=== PATIENT | male | born 1960 | race Caucasian/White ===

== ENCOUNTER 2016-11-09 04:01 | Observation (INO) | payer OTHER ==
[~2016-11-09] VITALS: Ht 177.8 cm; Wt 124.7 kg
--- NOTE | 2016-11-09 04:08 | ED CARDIAC/CP/PALPITATIONS ---
History of Present Illness General Chief Complaint: General Adult Stated Complaint: " CP AND BACK PAIN" Source: patient, family Exam Limitations: no limitations Vital Signs & Intake/Output Vital Signs & Intake/Output Vital Signs Date Time Temp Pulse Resp B/P Pulse O2 O2 Flow FiO2 Ox Delivery Rate 11/09 1530 97.4 67 20 136/92 94 Room Air 11/09 1027 78 138/90 11/09 1006 98.1 78 18 138/90 95 Room Air 11/09 0836 Room Air 11/09 0751 99.2 72 16 135/65 95 Room Air 11/09 0521 96.5 76 18 156/92 95 Room Air 11/09 0415 97 Room Air 11/09 0408 97.5 85 16 197/105 96 Room Air Room Air Allergies Coded Allergies: shellfish derived (Severe, ANAPHYLAXIS 11/09/16) Reconcile Medications Carvedilol 25 MG TABLET 1 TAB PO BID HTN (Reported) Eplerenone 25 MG TABLET 1 TAB PO DAILY HTN (Reported) Triage Nurses Notes Reviewed? yes Onset: Abrupt Duration: hour(s): (4) Timing: single episode today Quality/Severity: dull, pressure Location: LEFT CHEST Radiation: INTRASCAPULAR Activities at Onset: sleep Prior Chest Pain/Card Workup: no prior chest pain Nitro Today/Relief: no nitro taken today Aspirin Today: no aspirin today Associated Symptoms: CHEST PAIN/BACK PAIN HPI: This is a 56-year-old male with history of hypertension and obesity who presents to the ER with chief complaint of left-sided chest pain which woke him up at 11 PM. He states the pain is dull, moderate in intensity. It radiates to the intrascapular region. No associated palpitations diaphoresis or shortness of breath. No history of similar symptoms before. Patient found to be hypertensive in triage. He states usually his systolic blood pressure is around 130. He is compliant with his blood pressure medications. No history of previous known coronary disease. Denies ever having a cardiac catheterization or stress test. He did have an outpatient echocardiogram by Dr. Bernardo 2 weeks ago but does not know the results yet. He is not a smoker. He does drink occasional wine. He denies any chest pain or shortness of breath with exertion or climbing stairs at baseline. She states when the pain happened he tried to take a dose of Maalox which usually helps heartburn but he states symptoms didn' t go away. This also does not feel like his heartburn. Past History Travel History Traveled to [place] past 21 day No Medical History Any Pertinent Medical History? see below for history Cardiovascular: hypertension Other Medical Hx: obesity Surgical History Surgical History: non-contributory Psychosocial History Tobacco Use: Never used ETOH Use: occasional use Family History Comment: GRANDFATHER WITH ? AORTIC ANEURYSM Hx Contributory? Yes Review of Systems Review of Systems Constitutional: Denies: chills, fever. EENTM: Reports: no symptoms. Respiratory: Denies: cough, short of breath, sputum production. Cardiovascular: Reports: chest pain. Denies: palpitations, peripheral edema, syncope. GI: Denies: abdominal pain, nausea, vomiting. Genitourinary: Reports: no symptoms. Musculoskeletal: Reports: back pain. Skin: Reports: no symptoms. Neurological/Psychological: Reports: no symptoms. Hematologic/Endocrine: Denies: bruising, bleeding, polyuria, polydipsia. Immunologic/Allergic: Denies: splenectomy. All Other Systems: Reviewed and Negative Physical Exam Physical Exam General Appearance: well developed/nourished, alert, awake, anxious, mild distress, obese Head: atraumatic, normal appearance Eyes: Bilateral: normal appearance, PERRL, EOMI. Ears, Nose, Throat: normal pharynx, normal ENT inspection, hearing grossly normal Neck: normal inspection, supple, full range of motion Respiratory: normal breath sounds, chest non-tender, no respiratory distress Cardiovascular: regular rate/rhythm, normal peripheral pulses Peripheral Pulses: 2+ radial (R), 2+ radial (L) Gastrointestinal: normal bowel sounds, soft, non-tender Back: normal inspection, normal range of motion Extremities: normal inspection, normal capillary refill, normal range of motion, no edema Neurologic/Psych: no motor/sensory deficits, awake, alert, oriented x 3 Skin: intact Core Measures ACS in differential dx? Yes Severe Sepsis Present: No Septic Shock Present: No Progress Differential Diagnosis: AMI, aortic dissection, musculoskeletal pain, myocarditis, pancreatitis, pericarditis, pneumonia, pneumothorax, pulmonary embolism, unstable angina Plan of Care: Orders Procedure Date/time Status Nothing by Mouth 11/10 B Active MYOCARDIAL PERFUSION IMAGING 11/10 0800 Active STRESS TEST W/NUCLEAR IMAGING 11/10 0600 Active Heart Healthy Diet 11/09 L Complete Heart Healthy Diet 11/09 B Complete TROPONIN LEVEL 11/09 1600 Complete EKG 11/09 1600 Active TROPONIN LEVEL 11/09 1000 Complete EKG 11/09 1000 Active Pathway - chart 11/09 0921 Active Code Status 11/09 0921 Active Vital Signs 11/09 0825 Active Teach/Educate 11/09 0825 Active Nutritional Intake, Monitor 11/09 0825 Active Isolation 11/09 0825 Active Intake & Output 11/09 0825 Active Patient Care Conference 11/09 0825 Active Activity/Ambulation 11/09 0825 Active Patient Data 11/[address] in observation 11/09 0702 Active Vital Signs 11/09 0702 Active Code Status 11/09 0702 Complete Add-on Test (ER Only) 11/09 0701 Active Add-on Test (ER Only) 11/09 0423 Active LIPASE 11/09 0420 Complete ETHANOL 11/09 0420 Complete D-DIMER 11/09 0420 Complete Telemetry/Nurses' Registry Director 11/09 0419 Active TROPONIN LEVEL 11/09 0419 Complete PARTIAL THROMBOPLASTIN TIME 11/09 0419 Complete PROTHROMBIN TIME 11/09 0419 Complete COMPREHENSIVE METABOLIC PANEL 11/09 0419 Complete CBC WITHOUT DIFFERENTIAL 11/09 0419 Complete Intake & Output 11/09 0411 Active EKG 11/09 0405 Active EKG 11/09 0403 Active House Staff 11/09 UNK Active Vital Signs 11/09 UNK Complete ECHOCARDIOGRAM 11/09 UNK Active Current Medications Sig/Georgette Start time Last Medication Dose Stop Time Status Admin Aspirin 81 MG DAILY 11/10 1000 AC (Aspirin) Nitroglycerin 0.4 MG Q 5 MINUTES X 3 DO.. 11/09 1130 AC (Nitrostat) Laboratory Tests 11/09/16 1627: Troponin I < 0.01 11/09/16 1020: Troponin I < 0.01 11/09/16 0421: Lipase Cancelled, Serum Alcohol Cancelled 11/09/16 0420: Anion Gap 12, Estimated GFR > 60, BUN/Creatinine Ratio 15.0, Glucose 113 H, Calcium 9.6, Total Bilirubin 0.7, AST 31, ALT 48, Alkaline Phosphatase 52, Troponin I < 0.01, Total Protein 7.8, Albumin 4.4, Globulin 3.4, Albumin/ Globulin Ratio 1.3, Lipase 103, PT 10.3, INR 0.98, APTT 31, D-Dimer < 200, CBC w Diff NO MAN DIFF REQ, RBC 4.92, MCV 94.4 H, MCH 31.8 H, RDW 13.4, MPV 9.5, Gran % 69.4, Lymphocytes % 20.2 L, Monocytes % 7.5, Eosinophils % 2.3, Basophils % 0.6, Absolute Granulocytes 6.3, Absolute Lymphocytes 1.8, Absolute Monocytes 0.7 H, Absolute Eosinophils 0.2, Absolute Basophils 0.1, PUBS MCHC 33.7, Serum Alcohol < 10.0 ekg, tele monitor. b/l manual arm bp. labs, cxr. sl nitro ordered. Back pain resolved after nitro. Some lingering chest pain. Nitrop paste ordered. Aspirin ordered. D/W DR COSTA. PLATIENT PLACED IN OBSERVATION TO TELEMETRY. (TRAY LOPEZ,JES) Diagnostic Imaging: Viewed by Me: Radiology Read, CT Scan. Discussed w/RAD: Radiology Read, CT Scan. Radiology Impression: PATIENT: EULALIO MCKNIGHT PRESENT AGE: 56 PATIENT ACCOUNT NO: [id number] : 58 LOCATION: [facility] ORDERING PHYSICIAN: JES FELIZ MD SERVICE DATE: 11/09/16 EXAM TYPE: CAT - CT CHEST WO IV CONTRAST EXAMINATION: CT CHEST WITHOUT CONTRAST CLINICAL INFORMATION: Chest pain. COMPARISON: Same day chest radiograph. TECHNIQUE: Contiguous axial thin section helical images of the chest were performed without contrast. The data set was reformatted in the coronal and sagittal planes and reviewed on an independent workstation. DLP: 801 mGy-cm. FINDINGS: There is an area of low attenuation within the left thyroid gland measuring 2.4 cm. The heart is of normal size. There is no pericardial effusion. There is neither mediastinal, hilar nor axillary lymphadenopathy. There are no chest wall masses. Review of lung windows demonstrates that there are neither pleural effusions nor pneumothoraces. There is mild dependent bibasilar atelectasis. There are no consolidations. There is medial segment right middle lobe atelectasis. There are no concerning pulmonary parenchymal nodules. Within the right upper lobe, there is a benign calcified 3 mm granuloma on image 135/592. Images of the upper abdomen demonstrate that the liver is of normal size and attenuation. Within the dome of the right lobe of the liver, there is an approximately 5 mm area of decreased attenuation which is too small to fully characterize. Normal adrenal glands are identified. Diverticulosis is identified within the left upper quadrant. Bone windows: Neither sclerotic nor lytic bone lesions are identified. IMPRESSION: No mediastinal or hilar abnormalities. Right middle lobe atelectasis. Colonic diverticulosis without evidence of diverticulitis. DICTATED BY: YOAN WILHLEM MD DATE/TIME DICTATED:11/09/16525 SPANISH MOSS PICKER: NANCY DATE/TIME TRANSCRIBED:11/09/16525 CONFIDENTIAL, DO NOT COPY WITHOUT APPROPRIATE AUTHORIZATION. <Electronically signed in Other Vendor System> SIGNED BY: YOAN WILHELM MD 11/09/16535 CXR Impression: PATIENT: EULALIO MCKNIGHT PRESENT AGE : 56 PATIENT ACCOUNT NO: [id number] : 58 LOCATION: [facility] ORDERING PHYSICIAN: JES FELIZ MD SERVICE DATE: 11/09/16 EXAM TYPE: RAD - XRY -PORTABLE CHEST XRAY EXAMINATION: CHEST 1 VIEW CLINICAL INFORMATION: Chest pain. COMPARISON: None. TECHNIQUE: An AP view of the chest is provided. FINDINGS: The cardiac silhouette is enlarged. The mediastinal and hilar contours are unremarkable. There are neither pleural effusions nor pneumothoraces. Evaluation of lungs is limited due to low lung volumes. There are no consolidations. The osseous structures are unremarkable. IMPRESSION: No evidence for acute disease. Cardiomegaly. DICTATED BY: YOAN WILHELM MD DATE/TIME DICTATED:11/09/16504 SPANISH MOSS PICKER:NANCY DATE/TIME TRANSCRIBED:11/09/16504 CONFIDENTIAL, DO NOT COPY WITHOUT APPROPRIATE AUTHORIZATION. <Electronically signed in Other Vendor System> SIGNED BY: YOAN WILHELM MD 11/09/16509 Initial ED EKG: NSR Rhythm Strip: normal sinus rhythm Departure Departure Time of Disposition: 646 Disposition: STILL A PATIENT Condition: Stable Clinical Impression Primary Impression: Unstable angina Referrals: JAVON LOPEZ,ABHI (PCP/Family) Departure Forms: Customer Survey General Discharge Information Observation Note Spoke With: PARUL COSTA M.D Physician Advisor Notified: TWAN MELGOZA DO Place Patient In: Non-ED OBS Care Area Rationale for Observation: My rational for observation is as follows [TELE MONITOR, SERIAL EKG, SERIAL TROPONIN, ASPIRIN, NITRATES, CARDIOLOGY EVALUATION, F/U ECHOCARDIOGRAM RESULTS]. Critical Care Note Critical Care Note Critical Care Time: 30-74 min
[2016-11-09] MEDS ORDERED: CARVEDILOL25 M1 PO (04:18)
[2016-11-09] MEDS ORDERED: EPLERENONE25 M1 PO (04:18)
--- NOTE | 2016-11-09 04:19 | NUR ---
PT FROM HOME C/O CP AND BACK PAIN. PT STATES "I WOKE UP AROUND 2300 WITH CHEST AND BACK PAIN" PT DENIES EATING ANY SPICY FOOD, DENIES BILATERAL NUMBNESS OR TINGLING, DENIES N.V.D, DENIES JAW OR PAIN RADIATING ANYWHERE. PT TO 1 WITH EKG, LABS DRAWN (BLUE, SST, ELLIOTT, LAV), IV ACCESS ESTABLISHED PER THIS RN RAC #[id number]. DR FELIZ IN FOR EVAL
--- NOTE | 2016-11-09 04:24 | NUR ---
PT MEDICATED WITH 0.4MG NITROSTAT PER EMAR FOR CP 05/21.
[2016-11-09 04:30] LABS: ABSOLUTE BASOPHIL COUNT 0.1 /CUMM (0.0-0.2); ABSOLUTE EOSINOPHIL COUNT 0.2 /CUMM (0.0-0.7); ABSOLUTE GRANULOCYTE CT 6.3 /CUMM (1.4-6.5); ABSOLUTE LYMPH COUNT 1.8 /CUMM (1.2-3.4); ABSOLUTE MONOCYTE COUNT 0.7 /CUMM (0.10-0.60); BASOPHIL % 0.6 % (0.0-2.0); EOSINOPHIL % 2.3 % (0-5); GRANULOCYTE % 69.4 % (42.2-75.2); HEMATOCRIT 46.5 % (42-52); MEAN CORPUSCULAR HGB 31.8 PG (27.0-31.0); MEAN CORPUSCULAR HGB CONC 33.7 G/DL (33.0-37.0); MEAN CORPUSCULAR VOLUME 94.4 FL (80.0-94.0); MEAN PLATELET VOLUME 9.5 FL (7.4-10.4); PLATELET COUNT 195 /CUMM (130-400); RBC DISTRIBUTION WIDTH 13.4 % (11.5-14.5); RED BLOOD CELL CT 4.92 /CUMM (4.70-6.10)
--- NOTE | 2016-11-09 04:31 | NUR ---
MANUAL BP RIGHT ARM 152/84 LEFT ARM 146/90
--- NOTE | 2016-11-09 04:41 | NUR ---
PT AWAITING XRAY
[2016-11-09 04:45] LABS: PT 10.3 SEC (9.4-12.5); PTT 31 SEC (25-37)
--- NOTE | 2016-11-09 05:10 | RADIOLOGY REPORT ---
EXAMINATION: CHEST 1 VIEW CLINICAL INFORMATION: Chest pain. COMPARISON: None. TECHNIQUE: An AP view of the chest is provided. FINDINGS: The cardiac silhouette is enlarged. The mediastinal and hilar contours are unremarkable. There are neither pleural effusions nor pneumothoraces. Evaluation of lungs is limited due to low lung volumes. There are no consolidations. The osseous structures are unremarkable. IMPRESSION: No evidence for acute disease. Cardiomegaly.
--- NOTE | 2016-11-09 05:23 | NUR ---
PT MEDICATED WITH 1GM NITROBID TO LEFT CHEST AND 325MG ASA PER EMAR.
--- NOTE | 2016-11-09 05:36 | CT SCAN REPORT ---
EXAMINATION: CT CHEST WITHOUT CONTRAST CLINICAL INFORMATION: Chest pain. COMPARISON: Same day chest radiograph. TECHNIQUE: Contiguous axial thin section helical images of the chest were performed without contrast. The data set was reformatted in the coronal and sagittal planes and reviewed on an independent workstation. DLP: 801 mGy-cm. FINDINGS: There is an area of low attenuation within the left thyroid gland measuring 2.4 cm. The heart is of normal size. There is no pericardial effusion. There is neither mediastinal, hilar nor axillary lymphadenopathy. There are no chest wall masses. Review of lung windows demonstrates that there are neither pleural effusions nor pneumothoraces. There is mild dependent bibasilar atelectasis. There are no consolidations. There is medial segment right middle lobe atelectasis. There are no concerning pulmonary parenchymal nodules. Within the right upper lobe, there is a benign calcified 3 mm granuloma on image 135/592. Images of the upper abdomen demonstrate that the liver is of normal size and attenuation. Within the dome of the right lobe of the liver, there is an approximately 5 mm area of decreased attenuation which is too small to fully characterize. Normal adrenal glands are identified. Diverticulosis is identified within the left upper quadrant. Bone windows: Neither sclerotic nor lytic bone lesions are identified. IMPRESSION: No mediastinal or hilar abnormalities. Right middle lobe atelectasis. Colonic diverticulosis without evidence of diverticulitis.
--- NOTE | 2016-11-09 07:34 | NUR ---
[facility] ASSIGNMENT [id number]
--- NOTE | 2016-11-09 07:51 | NUR ---
ASSUMED CARE OF PT WHO IS SITTING UP, A/O X 4, SPEAKING CLEARLY WITH NO DISTRESS OR DEFICITS NOTED. PT STATES HE FEELS "GOOD" AND DENIES ANY PAIN AT THIS TIME. DENIES CHEST PAIN. DENIES BACK PAIN. HAS NITRO IN PLACE TO L TORSO, DATED TODAY 514. PT REMAINS NORMAL SINUS ON MONITOR, RATE 68 AWARE HE IS WAITING FOR ADMISSION/TRANSPORT UPSTAIRS DENIES NEEDING ANYTHING AT THIS TIME.
--- NOTE | 2016-11-09 07:57 | NUR ---
PT GOING TO 182 PER NURSE ON TELEMOE CALLED.
--- NOTE | 2016-11-09 08:46 | History & Physical ---
CHETAN LOPEZ,[facility] 11/09/16 0846: General Information and HPI MD Statement: I have seen and personally examined EULALIO MCKNIGHT and documented this H&P. The patient is a 56 year old M who presented with a patient stated chief complaint of [chest pressure]. Source of Information: patient Exam Limitations: no limitations History of Present Illness: 56-year-old male with past medical history of hypertension presents to the ED with complaints of chest pressure/heaviness that woke him up from sleep last at 11 PM. Patient reports pain on the left side of the chest and heaviness in between the shoulder blades which he noticed the same time. Reports his pain was totally relieved after sublingual nitroglycerin that he received in ED Denies chest pain, difficulty breathing, dizziness, syncope, palpitations, Pain radiating to the shoulders. Never had similar symptoms in the past. Has acid reflex once in a while and takes Tums as needed. Recently had an echocardiogram done with Dr. Bernardo. He was referred by his primary care physician for hypertension. Never had nuclear stress test in the past. Has had echocardiograms in the past for uncontrolled hypertension. But his blood pressure has been stable since he started carvedilol and eplerenone. Allergies/Medications Allergies: Coded Allergies: shellfish derived (Severe, ANAPHYLAXIS 11/09/16) Home Med list Carvedilol 25 MG TABLET 1 TAB PO BID HTN (Reported) Eplerenone 25 MG TABLET 1 TAB PO DAILY HTN (Reported) Past History Travel History Traveled to [place] past 21 day No Medical History Blood Transfusion Hx: No Cardiovascular: hypertension Other Medical Hx: obesity Isolation History: Standard Surgical History Surgical History: none Past Family/Social History Family History Relations & Conditions if any FATHER Relation not specified for: FHx: hypertension Psychosocial History Smoking Status: Never Smoked ETOH Use: occasional use Illicit Drug Use: denies illicit drug use Functional Ability ADLs Independent: dressing, eating, toileting, bathing. Ambulation: independent IADLs Independent: shopping, housework, finances, food prep, telephone, transportation , medication admin. 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 Exam & Diagnostic Data Last 24 Hrs of Vital Signs/I&O Vital Signs Date Time Temp Pulse Resp B/P Pulse O2 O2 Flow FiO2 Ox Delivery Rate 11/09 1027 78 138/90 11/09 1006 98.1 78 18 138/90 95 Room Air 11/09 0836 Room Air 11/09 0751 99.2 72 16 135/65 95 Room Air 11/09 0521 96.5 76 18 156/92 95 Room Air 11/09 0415 97 Room Air 11/09 0408 97.5 85 16 197/105 96 Room Air Room Air Intake & Output 11/09 1600 11/09 0800 11/09 0000 Intake Total Output Total Balance Patient 275 lb 275 lb Weight Physical Exam General Appearance Alert, Oriented X3, Cooperative, No Acute Distress Skin No Rashes HEENT Atraumatic Cardiovascular Regular Rate, Normal S1, Normal S2, No Murmurs Lungs Clear to Auscultation Abdomen Normal Bowel Sounds, Soft, No Tenderness Extremities No Clubbing, No Cyanosis, No Edema Last 24 Hrs of Labs/Aiden: Laboratory Tests 11/09/16 1020: Troponin I Pending 11/09/16 0421: Lipase Cancelled, Serum Alcohol Cancelled 11/09/16 0420: Anion Gap 12, Estimated GFR > 60, BUN/Creatinine Ratio 15.0, Glucose 113 H, Calcium 9.6, Total Bilirubin 0.7, AST 31, ALT 48, Alkaline Phosphatase 52, Troponin I < 0.01, Total Protein 7.8, Albumin 4.4, Globulin 3.4, Albumin/ Globulin Ratio 1.3, Lipase 103, PT 10.3, INR 0.98, APTT 31, D-Dimer < 200, CBC w Diff NO MAN DIFF REQ, RBC 4.92, MCV 94.4 H, MCH 31.8 H, RDW 13.4, MPV 9.5, Gran % 69.4, Lymphocytes % 20.2 L, Monocytes % 7.5, Eosinophils % 2.3, Basophils % 0.6, Absolute Granulocytes 6.3, Absolute Lymphocytes 1.8, Absolute Monocytes 0.7 H, Absolute Eosinophils 0.2, Absolute Basophils 0.1, PUBS MCHC 33.7, Serum Alcohol < 10.0 Diagnostic Data CXR Results No evidence for acute disease. Cardiomegaly. Other Results CAT - CT CHEST WO IV CONTRAST: No mediastinal or hilar abnormalities. Right middle lobe atelectasis. Colonic diverticulosis without evidence of diverticulitis. Assessment/Plan Assessment: Assessment and plan 1. Unstable angina: Initial troponins are negative with T-wave inversions in lead V2 and V3. will check EKGs, troponins 3. Patient is symptom-free currently. So far looks like he doesn't have an acute SD. Patient might have coronary artery disease (risk factors factors hypertension, obesity, sedentary lifestyle). We will obtain echocardiogram to rule out regional wall motion abnormalities. He received 325 mg aspirin in the ED. We will continue him on 81 daily. will Start him on a statin and nitrates. We will continue his beta blockers. YESSICA score is 1. Will hold off on anticoagulation. We will keep him NPO after midnight in the event if he need stress test/cardiac cath. If Patient remains asymptomatic he can be referred to outpatient nuclear stress test. He may have acid relfux which could present like chest discomfort. Would hold off on PPIs at this time. 2. HTN: Blood pressure on admission was high. Repeat blood pressure was WNL. we will continue his home medication. Full code status Heart healthy diet. As Ranked By This Provider Problem List: 1. Unstable angina 2. Hypertension Core Measures/Miscellaneous Acute Coronary Syndrome ACS Diagnosis: No Cerebrovascular Accident CVA/TIA Diagnosis: No Congestive Heart Failure CHF Diagnosis: No Venous Thromboembolism VTE Risk Factors: Age > 40 VTE Prophylaxis Ordered Inpt: Pharm- Lovenox No Mech VTE prophylaxis d/t: No contraindications No VTE Pharm Prophylaxis d/t: No contraindications VTE Diagnosis: No VTE Type: NONE VTE Confirmed by (Test): NONE Severe Sepsis Severe Sepsis Present: No Septic Shock Septic Shock Present: No Miscellaneous Documentation Attending Case Discussed With: PARUL COSTA M.D Primary Care Physician: ABHI ALEJANDRO MD Patient sees these Specialists None Level of Patient Care: Telemetry PARUL COSTA MD 11/09/16 1202: Attending Review Statement Attending Statement Attending MD Statement: examined this patient, discuss w/resident/PA/ERP IMPLEMENTATION CONSULTANT, agreed w/resident/PA/ERP IMPLEMENTATION CONSULTANT, reviewed EMR data (avail), discussed with nursing, discussed with case mgmt, amended to note Attending Assessment/Plan: Patient seen and examined. 56-year-old male with no previous personal or family history of coronary artery disease who presents with complaints of atypical chest pain that awoke him late last night. Symptoms were not relieved with Maalox weekend to the ED for evaluation. He reports relief of symptoms after administration of sublingual nitroglycerin. So far his cardiac workup has been negative with no ischemic EKG and negative cardiac enzyme x1. He is currently pain-free and hemodynamically stable. Reported history of aortic disease in his father and a CT chest was done in the emergency room that showed no mediastinal or hilar abnormalities. Right middle lobe atelectasis. His d-dimer was negative. Patient is hemodynamically stable. His physical examination is unrevealing. Chest pain is not reproducible. He is being placed on the telemetry service for observation to rule out acute coronary syndrome with telemetry monitoring and serial cardiac enzymes. If workup is negative he would need an elective stress test for further risk stratification. He is currently pain-free. If cardiac workup is negative and symptoms recall recommend trial of PPI therapy. We'll also begin patient on incentive spirometry.
[2016-11-09 10:06] VITALS: BP 138/90
[2016-11-09 15:30] VITALS: BP 136/92
--- NOTE | 2016-11-09 15:47 | Cons- Cardiology ---
General Information and HPI Consulting Request Date of Consult: 11/09/16 Requested By: PARUL COSTA M.D Reason for Consult: Chest pain Source of Information: patient History of Present Illness: This is a 56-year-old male with a past medical history of hypertension who presents to [facility] with an episode of moderate intensity chest discomfort. The symptoms occurred last night and felt like a chest heaviness without significant dyspnea or palpitations. He initially thought the symptoms were due to indigestion but Mylanta did not offer relief. He says that prior to yesterday he has normal exertional tolerance without exertional symptoms. He does not smoke. The symptoms continued until presentation to the emergency room and were relieved with nitroglycerin. He has not had any recurrent symptoms since then and is quite comfortable today. He recently had an outpatient echocardiogram done at Dr. Bernardo's office but those results are not currently available today. Allergies/Medications Allergies: Coded Allergies: shellfish derived (Severe, ANAPHYLAXIS 11/09/16) Home Med List: Carvedilol 25 MG TABLET 1 TAB PO BID HTN (Reported) Eplerenone 25 MG TABLET 1 TAB PO DAILY HTN (Reported) Current Medications: Current Medications Sig/Georgette Start time Last Medication Dose Route Stop Time Status Admin Aspirin 81 MG DAILY 11/10 1000 AC PO Aspirin 0 .STK-MED ONE 11/09 0417 DC PO Aspirin 325 MG ONCE ONE 11/09 0415 DC 11/09 PO 11/09 0516 0523 Atorvastatin Calcium 40 MG 1700 11/09 1130 AC 11/09 PO 1234 Carvedilol 25 MG BID 11/09 1000 AC 11/09 PO 1027 Enoxaparin Sodium 40 MG DAILY 11/09 1000 AC 11/09 SC 1027 Nitroglycerin 0.4 MG Q 5 MINUTES X 3 DO.. 11/09 1130 AC SL Nitroglycerin 0 .STK-MED ONE 11/09 0518 DC TOP Nitroglycerin 1 GM ONCE ONE 11/09 0515 DC 11/09 TOP 11/09 0516 0523 Nitroglycerin 0.4 MG ONCE ONE 11/09 0430 DC 11/09 SL 11/09 0431 0424 Review of Systems Review of Systems: Review of systems as per HPI. The remainder of a 10 point review of systems was reviewed and was otherwise negative. Past History Travel History Traveled to [place] past 21 day No Medical History Blood Transfusion Hx: No Cardiovascular: hypertension Other Medical Hx: obesity Surgical History Surgical History: 1 Family History Relations & Conditions If Any: FATHER Relation not specified for: FHx: hypertension Psychosocial History Smoking Status: Never Smoked ETOH Use: occasional use Illicit Drug Use: denies illicit drug use Functional Ability ADLs Independent: dressing, eating, toileting, bathing. Ambulation: independent IADLs Independent: shopping, housework, finances, food prep, telephone, transportation , medication admin. 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 Alert. Eyes: No obvious scleral icterus. HEENT: No jugular venous distention or abnormal jugular venous pulsations. Cardiovascular: Normal intensity S1/S2. PMI not grossly displaced. Respiratory: Lungs clear to auscultation bilaterally. Abdomen: Soft, nontender with no guarding or rebound tenderness. Musculoskeletal: No clubbing or cyanosis noted Skin: No obvious rashes or ulcerations. Neurologic: No gross focal deficits noted. Lymph: No gross lymphadenopathy. Labs/Aiden Results: Laboratory Tests 11/09 11/09 11/09 1020 0421 0420 Chemistry Sodium (137 - 145 mmol/L) 144 Potassium (3.5 - 5.1 mmol/L) 4.3 Chloride (98 - 107 mmol/L) 105 Carbon Dioxide (22 - 30 mmol/L) 27 Anion Gap (5 - 16) 12 BUN (9 - 20 mg/dL) 15 Creatinine (0.7 - 1.2 mg/dL) 1.0 Estimated GFR (>60 ml/min) > 60 BUN/Creatinine Ratio (7 - 25 %) 15.0 Glucose (65 - 99 mg/dL) 113 H Calcium (8.4 - 10.2 mg/dL) 9.6 Total Bilirubin (0.2 - 1.3 mg/dL) 0.7 AST (17 - 59 U/L) 31 ALT (21 - 72 U/L) 48 Alkaline Phosphatase (< 127 U/L) 52 Troponin I (<0.11 ng/ml) < 0.01 < 0.01 Total Protein (6.3 - 8.2 g/dL) 7.8 Albumin (3.5 - 5.0 g/dL) 4.4 Globulin (1.9 - 4.2 gm/dL) 3.4 Albumin/Globulin Ratio (1.1 - 2.2 %) 1.3 Lipase (23 - 300 U/L) Cancelled 103 Coagulation PT (9.4 - 12.5 SEC) 10.3 INR (0.90 - 1.17) 0.98 APTT (25 - 37 SEC) 31 D-Dimer (70 - 232 ng/ml) < 200 Hematology CBC w Diff NO MAN DIFF REQ WBC (4.8 - 10.8 /CUMM) 9.0 RBC (4.70 - 6.10 /CUMM) 4.92 Hgb (14.0 - 18.0 G/DL) 15.7 Hct (42 - 52 %) 46.5 MCV (80.0 - 94.0 FL) 94.4 H MCH (27.0 - 31.0 PG) 31.8 H RDW (11.5 - 14.5 %) 13.4 Plt Count (130 - 400 /CUMM) 195 MPV (7.4 - 10.4 FL) 9.5 Gran % (42.2 - 75.2 %) 69.4 Lymphocytes % (20.5 - 51.1 %) 20.2 L Monocytes % (1.7 - 9.3 %) 7.5 Eosinophils % (0 - 5 %) 2.3 Basophils % (0.0 - 2.0 %) 0.6 Absolute Granulocytes (1.4 - 6.5 /CUMM) 6.3 Absolute Lymphocytes (1.2 - 3.4 /CUMM) 1.8 Absolute Monocytes (0.10 - 0.60 /CUMM) 0.7 H Absolute Eosinophils (0.0 - 0.7 /CUMM) 0.2 Absolute Basophils (0.0 - 0.2 /CUMM) 0.1 PUBS MCHC (33.0 - 37.0 G/DL) 33.7 Toxicology Serum Alcohol (<10 MG/DL) Cancelled < 10.0 Diagnostic Data EKG Results Tracing was personally reviewed and shows sinus rhythm at 67 bpm with incomplete right bundle-branch block CXR Results No CHF or pneumonia Other Results chest CT No mediastinal or hilar abnormalities. Right middle lobe atelectasis. Colonic diverticulosis without evidence of diverticulitis. Telemetry tracings were personally reviewed and shows sinus rhythm Assessment/Plan Assessment/Plan 1. Transient chest discomfort, resolved 2. History of hypertension 3. Incomplete right bundle-branch block The etiology of the patient's recent episode is unclear. His troponins are negative without obvious ischemic changes on the ECG but the chest pain did respond to nitroglycerin which may suggest a cardiac etiology. Discussed options with the patient at length and the plan is to proceed with exercise nuclear stress test tomorrow. We are also going to obtain a repeat echocardiogram which we will compare to his reported recent outpatient echocardiogram to look for any new regional wall motion abnormalities. The patient should be kept nothing by mouth after midnight. Would hold his beta korin in anticipation of the exercise nuclear stress test. If difficulty controlling his blood pressure while off the beta korin can use when necessary hydralazine temporarily. Agree with aspirin and statin empirically for now pending further ischemic workup. Willie Silva MD [facility] Consult Acknowledgment - Thank you for your consult request.
[2016-11-10 00:24] VITALS: BP 140/90
--- NOTE | 2016-11-10 07:35 | PN- Housestaff ---
HODAN LOPEZ,[facility] 11/10/16 0735: Subjective Follow-up For: Chest pain Tele-Events Since Last Visit: Sinus rhythm, heart rate 60-70. Subjective: Patient seen and examined this morning. He was sitting comfortably in his chair no acute distress. He is scheduled for a nuclear stress test today, no commits of repeat episodes of chest pain, palpitation, dizziness. Has been afebrile, other vitals within normal limits. Review of Systems Constitutional: Denies: chills, fever. Cardiovascular: Denies: chest pain, palpitations. Respiratory: Denies: cough, short of breath, sputum production. Gastrointestinal: Denies: abdominal pain, constipation, diarrhea, nausea, vomiting. Genitourinary: Denies: dysuria, frequency. Objective Last 24 Hrs of Vital Signs/I&O Vital Signs Date Time Temp Pulse Resp B/P Pulse O2 O2 Flow FiO2 Ox Delivery Rate 11/10 0824 98.4 86 18 144/90 96 Room Air 11/10 0800 Room Air 11/10 0024 98.3 84 20 140/90 93 Room Air 11/09 1530 97.4 67 20 136/92 94 Room Air Intake & Output 11/10 1600 11/10 0800 11/10 0000 Intake Total 0 760 Output Total Balance 0 760 Intake, Oral 0 760 Physical Exam General Appearance: Alert, Oriented X3, Cooperative Assessment/Plan Assessment: Assessment and plan 1. Chest pain: Initial troponins are negative with T-wave inversions in lead V2 and V3. Serial EKGs and troponins have been negative for any acute findings. patient is symptom-free currently.Patient might have coronary artery disease ( risk factors factors hypertension, obesity, sedentary lifestyle). Patient scheduled for exercise nuclear stress test today. He received 325 mg aspirin in the ED, continued on 81 daily along with statin and nitrates,beta blockers. YESSICA score is 1. 2. HTN: Blood pressure on admission was high. In the past 24 hours systolic blood pressure between 136-144, we will continue his home medication. Full code status Heart healthy diet. Problem List: 1. Unstable angina 2. Hypertension Pain Ratin Pain Location: none Pain Goal: Remain pain free Pain Plan: Nitroglycerin Tomorrow's Labs & Rationales: None YOAN LANE MD 11/10/16 5833: Attending MD Review Statement Attending Statement Attending MD Statement: examined this patient, discuss w/resident/PA/MACHINE QUILT STUFFER, agreed w/resident/PA/MACHINE QUILT STUFFER, discussed with family, reviewed EMR data (avail), discussed with nursing, discussed with case mgmt, amended to note Attending Assessment/Plan: The patient was seen and discussed with house staff and Cardiology. Stress Myoview negative for ischemia and troponin's neg x 3. Suggest symptoms/chest pain may be GI in origin and represent GERD and esophageal spasm. Will empirically treat with omeprazole daily at present and assess need for GI evaluation. Follow-up with Dr. Bernardo and Dr. Gonzalez. OK to discharge today.
[2016-11-10 08:24] VITALS: BP 144/90
--- NOTE | 2016-11-10 08:59 | PN- Cardiology ---
Subjective Subjective: The patient reports that he is feeling better. His chest discomfort has completely resolved. No shortness of breath. No palpitations. No diaphoresis. No lightheadedness or dizziness. No nausea or vomiting. Objective Vital Signs and I&Os Vital Signs Date Time Temp Pulse Resp B/P Pulse O2 O2 Flow FiO2 Ox Delivery Rate 11/10 0824 98.4 86 18 144/90 96 Room Air 11/10 0800 Room Air 11/10 0024 98.3 84 20 140/90 93 Room Air 11/09 1530 97.4 67 20 136/92 94 Room Air 11/09 1027 78 138/90 11/09 1006 98.1 78 18 138/90 95 Room Air Intake & Output 11/10 1600 11/10 0800 11/10 0000 11/09 1600 11/09 0800 11/09 0000 Intake Total 0 760 705 Output Total Balance 0 760 705 Intake, Oral 0 760 705 Patient 275 lb 275 lb Weight Physical Exam: Gen: The patient is in no acute distress HEENT: Normal nose, ears, and oropharynx. Pupils equal bilaterally. Conjunctiva normal. Neck: Supple with no JVD, no masses, and no thyromegaly Lungs: Clear to auscultation with normal respiratory effort Heart: RRR, S1, S2, no murmurs. No peripheral edema, 2+ pulses in the lower extremities bilaterally Abdomen: Soft, nontender, no masses. No hepatomegaly. No splenomegaly Extremities: No clubbing or cyanosis. Normal muscle strength in the upper and lower extremities Skin: Normal skin turgor with no skin ulcers or lesions noted. Neuro: Cranial nerves intact. Sensation intact Psych: Alert and oriented 3 with appropriate affect Current Medications: Current Medications Sig/Georgtete Start time Last Medication Dose Route Stop Time Status Admin Aspirin 81 MG DAILY 11/10 1000 AC PO Atorvastatin Calcium 40 MG 1700 11/09 1130 AC 11/09 PO 1234 Carvedilol 25 MG BID 11/09 1000 DC 11/09 PO 1027 Enoxaparin Sodium 40 MG DAILY 11/09 1000 AC 11/09 SC 1027 Eplerenone 25 MG DAILY 11/09 1545 AC 11/09 PO 1629 Nitroglycerin 0.4 MG Q 5 MINUTES X 3 DO.. 11/09 1130 AC SL Results Last 48 Hrs of Labs/Mics: Laboratory Tests 11/09/16 1627: Troponin I < 0.01 11/09/16 1020: Troponin I < 0.01 11/09/16 0421: Lipase Cancelled, Serum Alcohol Cancelled 11/09/16 0420: Anion Gap 12, Estimated GFR > 60, BUN/Creatinine Ratio 15.0, Glucose 113 H, Calcium 9.6, Total Bilirubin 0.7, AST 31, ALT 48, Alkaline Phosphatase 52, Troponin I < 0.01, Total Protein 7.8, Albumin 4.4, Globulin 3.4, Albumin/ Globulin Ratio 1.3, Lipase 103, PT 10.3, INR 0.98, APTT 31, D-Dimer < 200, CBC w Diff NO MAN DIFF REQ, RBC 4.92, MCV 94.4 H, MCH 31.8 H, RDW 13.4, MPV 9.5, Gran % 69.4, Lymphocytes % 20.2 L, Monocytes % 7.5, Eosinophils % 2.3, Basophils % 0.6, Absolute Granulocytes 6.3, Absolute Lymphocytes 1.8, Absolute Monocytes 0.7 H, Absolute Eosinophils 0.2, Absolute Basophils 0.1, PUBS MCHC 33.7, Serum Alcohol < 10.0 Recent Imaging Studies: EKG tracing from 11/09/16 is independently reviewed, and reveals normal sinus rhythm at 68 with incomplete right bundle-branch block Assessment/Plan Assessment/Plan Assessment: 1. Hypertension 2. Abnormal EKG 3. Chest pain, responsive to nitroglycerin. Concerning for possible ischemia Recommendations: * Nuclear stress test today * If no significant ischemia seen on nuclear stress test, the patient may be discharged home to follow up in the office with Dr. Bernardo * Continue aspirin * Continue other cardiac medications. Continue telemetry? Yes
[2016-11-10] MEDS ORDERED: ATORVASTATIN CA40 M1 PO (13:23)
[2016-11-10] MEDS ORDERED: ASPIRIN81 M4 PO (13:23)
--- NOTE | 2016-11-10 13:31 | Patient Discharge Instructions ---
Discharge Instructions General Discharge Information You were seen/treated for: Chest pain Special Instructions: Please f/u with your primary care physician and sales assistant in one week. Diet Recommended Diet: Heart Healthy Activity Activity Self Limited: Yes Acute Coronary Syndrome Inclusion Criteria At DC or during hospital stay patient has or had the following: ACS DIAGNOSIS No Discharge Core Measures Meds if any: Prescribed or Continued at Discharge Meds if any: NOT Prescribed or Continued at Discharge Congestive Heart Failure Inclusion Criteria At DC or during hospital stay patient has or had the following: CHF DIAGNOSIS No Discharge Core Measures Meds if any: Prescribed or Continued at Discharge Meds if any: NOT Prescribed or Continued at Discharge Cerebrovascular accident Inclusion Criteria At DC or during hospital stay patient has or had the following: CVA/TIA Diagnosis No Discharge Core Measures Meds if any: Prescribed or Continued at Discharge Meds if any: NOT Prescribed or Continued at Discharge Venous thromboembolism Inclusion Criteria VTE Diagnosis No VTE Type NONE VTE Confirmed by (Test) NONE Discharge Core Measures - Per Current guidelines, there needs to be overlap - treatment for the first 5 days of Warfarin therapy. - If discharged on Warfarin prior to 5 days of - overlap therapy, the patient will need to be - assessed for post discharge needs including - *Post discharge parental anticoagulation - *Warfarin and/or parental anticoagulation education - *Follow up date to check INR post discharge At least 5 days overlap therapy as Inpatient No Meds if any: Prescribed or Continued at Discharge Note: Overlap Therapy is Warfarin and Anticoagulant Meds if any: NOT Prescribed or Continued at Discharge
--- NOTE | 2016-11-10 13:47 | PN- Student ---
JAMIL ORR 11/10/16 1340: Subjective Subjective: [CC]: chest pain and tightness between the shoulder blades. [HPI]: Pt stated he experienced left sided chest pain moderate in intensity w/ heaviness b/w the shoulder blades. Onset was at night on 11/08/16. The pt was given sublingual nitro in the ED, which subsequently relieved his pain. Hr was also given 325mg of Aspirin. He stated that he does have a history of acid reflux for which he takes tums as needed. Pt stated he had an echo done previously w/ Dr. Bernardo recently. [PMHx]: * HTN - stable w/ carvedilol and eplerenone. [PSHx]: N/A [SHx]: Tobacco: never smoked EtOH: occasional drink Illicit Drugs: denies use Occupation: n/a REVIEW OF SYSTEMS: [General]: Sweating (); Fever or chills (); Fatigue () - DENIES ALL [Eyes]: Visual Changes (); Pain (); Redness () - DENIES ALL [ENT]: Headaches (); hoarseness (); sore throat (); epistaxis (); sinus symptoms (); hearing loss (); tinnitus () - DENIES ALL [CVS]: Chest Pain (); Edema (); PND (); Orthopnea (); Palpitations (); Claudication () - DENIES ALL [Respiratory]: Cough (); SOB (); Wheezing (); Hypersomnolence () - DENIES ALL [GI]: Abdominal Pain (); Stool changes (); Nausea/Vomiting (); Diarrhea (); Heartburn (X); Blood in Stool () []: Dysuria (); Frequency (); Hematuria (); Discharge () - DENIES ALL [MSK]: Arthralgias (); Arthritis (); Joint Swelling (); Myalgias (); Back Pain ( X) [Heme/Lymph]: Bleeding (); Bruising (); Clotting (); Transfusions (); Lymph Node Swelling () - DENIES ALL [Endo]: Polyuria (); Polydipsia (); Polyphagia (); Heat/Cold Intolerance () - DENIES ALL [Derm]: Rash (); Pruritus () - DENIES ALL [Neuro]: Weakness (); Seizures (); Paresthesias (); Tremor (); Syncope () - DENIES ALL [Psych]: Anxiety (); Depression (); Hallucinations (); Claustrophobia () - DENIES ALL [All/Imm]: Shellfish (YES) MEDICATIONS: Current Medications Sig/Georgette Start time Last Medication Dose Route Stop Time Status Admin Acetaminophen 650 MG Q8P PRN 11/10 1315 AC PO Acetaminophen 1,000 MG Q8P PRN 11/10 1315 AC IV Aspirin 81 MG DAILY 11/10 1000 AC 11/10 PO 0918 Atorvastatin Calcium 40 MG 1700 11/09 1130 AC 11/09 PO 1234 Carvedilol 25 MG BID 11/09 1000 DC 11/09 PO 1027 Enoxaparin Sodium 40 MG DAILY 11/09 1000 AC 11/10 SC 0918 Eplerenone 25 MG DAILY 11/09 1545 AC 11/10 PO 0918 Nitroglycerin 0.4 MG Q 5 MINUTES X 3 DO.. 11/09 1130 AC SL Oxycodone HCl 10 MG Q8P PRN 11/10 1315 AC PO Objective Objective: VITALS: Vital Signs Date Time Temp Pulse Resp B/P Pulse O2 O2 Flow FiO2 Ox Delivery Rate 11/10 0824 98.4 86 18 144/90 96 Room Air 11/10 0800 Room Air 11/10 0024 98.3 84 20 140/90 93 Room Air 11/09 1530 97.4 67 20 136/92 94 Room Air Intake & Output 11/10 1600 11/10 0800 11/10 0000 Intake Total 0 760 Output Total Balance 0 760 Intake, Oral 0 760 PHYSICAL EXAM: [General Appearance]: Dress: (X) nl hygiene Affect: (X) nl affect, not flat, blunted, or expansive MSE: Oriented in Time, Person, Place [Eyes] General: (X) nl conjunctiva & lids Pupils: (X) equal, round, and reactive Fundus: () nl discs & vessels (N/A) Vision: (X) acuity & gross bell intact Abnormals: [ENT]: External: (X) no scars, lesions, masses. Otoscopic: (X) nl canals, tympanic membranes Hearing: (X) nl to finger rub Oropharynx: (X) nl teeth, tongue, palate, pharynx. Abnormals: [Neck]: External: (X) no tracheal deviation Palpation: (X) no masses or crepitus Thyroid: (X) no 'megaly or tenderness. Abnormals: [GI]: Palpation: (X) no masses or tenderness (X) no hep/splenomegaly Auscultation: (X) nl bowel sounds Percussion: () no shifting dullness (N/A) Anus/rectum : () no abnormalities or masses (N/A) () heme negative stool (N/A) Abnormals: [Respiratory]: Effort: (X) nl without retractions Percussion: () no dullness or hyperresonance (N/A) Palpation: () no fremitus (N/A) Auscultation: (X) CTAP w/o W, R, or R Abnormals: [CVS]: Palpation: (X) PMI nondisplaced Auscultation: (X) no murmur, gallop, or rub Carotids: (X) nl intensity w/o bruit JVD: (X) no jugular distension Pulses: (X) 2+/= femoral & pedal pulses Edema: (X) no pedal edema Abnormals: [Neuro]: Orientation: (X) A&O to person, place, time CN: (X) CN II-XII intact. Sensory: (X) nl sensation throughout Reflexes: (X) 2++ and symmetrical throughout. Abnormals: [Skin]: (X) no rashes, lesions, ulcers (X) nl turgor Abnormals: [Chest/Breast]: (X) nl inspection & palpation [Lymph Nodes]: (X) no axillary, inguinal, cervical, or submandibular LAD. []: (N/A) () nl external genitalia [if applicable] () nl vaginal tone, mucosa [if applicable] () no cervical motion tenderness [if applicable] () nl penis & scrotal contents [if applicable] () nl prostate size & texture [if applicable] Abnormals: [Psych]: (X) nl cognition (X) MMSE (X) nl mood and affect Abnormals: [MSK]: (NOT EXAMINED) Inspection ROM Strength Tone (X if normal) Abnormals Upper Extremity Lower Extremity [Gait]: (X) nl gait and station Results Results: Laboratory Tests 11/09/16 1627: Troponin I < 0.01 11/09/16 1020: Troponin I < 0.01 11/09/16 0421: Lipase Cancelled, Serum Alcohol Cancelled 11/09/16 0420: Anion Gap 12, Estimated GFR > 60, BUN/Creatinine Ratio 15.0, Glucose 113 H, Calcium 9.6, Total Bilirubin 0.7, AST 31, ALT 48, Alkaline Phosphatase 52, Troponin I < 0.01, Total Protein 7.8, Albumin 4.4, Globulin 3.4, Albumin/ Globulin Ratio 1.3, Lipase 103, PT 10.3, INR 0.98, APTT 31, D-Dimer < 200, CBC w Diff NO MAN DIFF REQ, RBC 4.92, MCV 94.4 H, MCH 31.8 H, RDW 13.4, MPV 9.5, Gran % 69.4, Lymphocytes % 20.2 L, Monocytes % 7.5, Eosinophils % 2.3, Basophils % 0.6, Absolute Granulocytes 6.3, Absolute Lymphocytes 1.8, Absolute Monocytes 0.7 H, Absolute Eosinophils 0.2, Absolute Basophils 0.1, PUBS MCHC 33.7, Serum Alcohol < 10.0 Laboratory Tests 11/09 11/09 11/09 1627 1020 0421 Chemistry Troponin I (<0.11 ng/ml) < 0.01 < 0.01 Lipase Cancelled Toxicology Serum Alcohol Cancelled 11/09 419 Chemistry Sodium (137 - 145 mmol/L) 144 Potassium (3.5 - 5.1 mmol/L) 4.3 Chloride (98 - 107 mmol/L) 105 Carbon Dioxide (22 - 30 mmol/L) 27 Anion Gap (5 - 16) 12 BUN (9 - 20 mg/dL) 15 Creatinine (0.7 - 1.2 mg/dL) 1.0 Estimated GFR (>60 ml/min) > 60 BUN/Creatinine Ratio (7 - 25 %) 15.0 Glucose (65 - 99 mg/dL) 113 H Calcium (8.4 - 10.2 mg/dL) 9.6 Total Bilirubin (0.2 - 1.3 mg/dL) 0.7 AST (17 - 59 U/L) 31 ALT (21 - 72 U/L) 48 Alkaline Phosphatase (< 127 U/L) 52 Troponin I (<0.11 ng/ml) < 0.01 Total Protein (6.3 - 8.2 g/dL) 7.8 Albumin (3.5 - 5.0 g/dL) 4.4 Globulin (1.9 - 4.2 gm/dL) 3.4 Albumin/Globulin Ratio (1.1 - 2.2 %) 1.3 Lipase (23 - 300 U/L) 103 Coagulation PT (9.4 - 12.5 SEC) 10.3 INR (0.90 - 1.17) 0.98 APTT (25 - 37 SEC) 31 D-Dimer (70 - 232 ng/ml) < 200 Hematology CBC w Diff NO MAN DIFF REQ WBC (4.8 - 10.8 /CUMM) 9.0 RBC (4.70 - 6.10 /CUMM) 4.92 Hgb (14.0 - 18.0 G/DL) 15.7 Hct (42 - 52 %) 46.5 MCV (80.0 - 94.0 FL) 94.4 H MCH (27.0 - 31.0 PG) 31.8 H RDW (11.5 - 14.5 %) 13.4 Plt Count (130 - 400 /CUMM) 195 MPV (7.4 - 10.4 FL) 9.5 Gran % (42.2 - 75.2 %) 69.4 Lymphocytes % (20.5 - 51.1 %) 20.2 L Monocytes % (1.7 - 9.3 %) 7.5 Eosinophils % (0 - 5 %) 2.3 Basophils % (0.0 - 2.0 %) 0.6 Absolute Granulocytes (1.4 - 6.5 /CUMM) 6.3 Absolute Lymphocytes (1.2 - 3.4 /CUMM) 1.8 Absolute Monocytes (0.10 - 0.60 /CUMM) 0.7 H Absolute Eosinophils (0.0 - 0.7 /CUMM) 0.2 Absolute Basophils (0.0 - 0.2 /CUMM) 0.1 PUBS MCHC (33.0 - 37.0 G/DL) 33.7 Toxicology Serum Alcohol (<10 MG/DL) < 10.0 Assessment/Plan Assessment: Mr. Bello is a 56 y/o male that arrived at the ED due to chest pain and upper back tightness. Pt was subsequently given Sublingual Nitroglycerin at the ED and pain subsided. Pt has a history of HTN treated with Carevdilol and heartburn ( untreated). Pt is likly suffering from heartburn (sublingual nitro relieved chest pain - which can occur due to esophageal spasms intensifying heartburn related pain being alleviated by nitro) vs. Unstable Angina (r/o occured at rest, relieved w/ nitroglycerin, however no elevation of troponins, and no EKG changes vs. Myocardial Infarction (r/o due to negative EKG and negative serial troponins) vs. Aortic dissection (r/o based on imaging available (CT/CXR). Plan: Problem #1: Chest Pain * Likely heartburn - relieved by nitro (esophageal spasm intensity may decrease w/ administration of nitro); history of heartburn; no clinical evidence of ACS. * Serial Troponins - (negative) * Serial EKGs - (monitored) * Obtain previous Echo from Dr. Bernardo * Redo Echocardiogram at [place] if necessary * Nuclear Stress Test - (negative) * Omeprazole daily for prevention of GERD. * Aspirin 81mg daily - for prevention of clots. * Atorvastatin 40 mg - for anti-ischemic/anti-anginal properties - follow up with PCP and determine if statin should be stopped. * Followup with biometrics instructor within 2 weeks. Problem #2: HTN * Blood pressure was stable on carvedilol and eplerenone (continue at home). * Followup with PCP in [address] MD 11/10/16 3123: Attending MD Review Statement Attending Sign Off Attending Cosign Statement: I have: examined this patient, agreed w/resident/PA/GLASS MECHANIC, amended to note. Other Findings: Agree with the plan of care as outlined.
[2016-11-10] MEDS ORDERED: OMEPRAZOLE20 M3 PO (16:04)
[2016-11-10 16:09] VITALS: BP 168/92
--- NOTE | 2016-11-10 16:17 | Discharge Summary ---
Visit Information Visit Dates Admission Date: 11/09/16 Discharge Date: 11/10/16 Hospital Course Course Attending Physician: YOAN LANE MD Primary Care Physician: JAVON LOPEZ,ABHI Hospital Course: 56-year-old male with past medical history of hypertension presents to the ED with complaints of atypical chest pressure/heaviness woke him up from sleep. Patient was admitted to telemetry floor, EKG upon presentation showed T-wave inversions in lead V2 and V3, serial troponins and EKG were negative hereafter. He has risk factors for coronary artery disease including hypertension, obesity, sedentary lifestyle). YESSICA score is 1.He was given 325 mg of aspirin in the ED, continued with continued on 81 daily along with statin and nitrates,beta blockers. Exercise nuclear stress tests was done which came back to normal. 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 Allergies: Coded Allergies: shellfish derived (Severe, ANAPHYLAXIS 11/09/16) Disposition Summary Disposition Principal Diagnosis: Chest pain Additional Diagnosis: Hypertension Discharge Disposition: home or self care Discharge Instructions General Discharge Information Code Status: Full Code Patient's Diet: As tolerated heart healthy Patient's Activity: As tolerated Follow-Up Instructions/Appts: Gentamicin follow-up with primary care physician and nail welter in 1 week Medications at Discharge Discharge Medications: Continue taking these medications: Carvedilol (Carvedilol) 25 MG TABLET 1 Tablet ORAL TWICE DAILY Eplerenone (Eplerenone) 25 MG TABLET 1 Tablet ORAL DAILY Start taking the following new medications: Aspirin (Aspirin*) 81 MG TAB.CHEW 1 Tablet ORAL DAILY Qty = 30 No Refills Atorvastatin Calcium (Atorvastatin Calcium) 40 MG TABLET 1 Tablet ORAL 5 PM Qty = 30 No Refills Omeprazole (Omeprazole) 20 MG TABLET.DR 1 Tablet ORAL DAILY Days = 30 No Refills Copies To: JAVON LOPEZ,ABHI; YOAN LANE MD, MD Review Statement Documenting Attending: Sanjeev HERNANDEZ MD Other Findings: The patient was seen and agree with plan of care upon discharge. His stress test was negative and suggest that chest pain may have been GI in origin (GERD/ esophageal spasm). The patient was placed on PPI (Omeprazole) at time of discharge. May need GI workup as OP.
--- NOTE | 2016-11-10 16:23 | NUCLEAR MEDICINE REPORT ---
EXERCISE STRESS AND RESTING SPECT MYOCARDIAL PERFUSION IMAGING STUDY WITH GATED SPECT IMAGES: CLINICAL INDICATION: Unstable angina. PROCEDURE: Regional myocardial perfusion was assessed using a 1 day protocol. Stress images were obtained on 11/10/2016 following the intravenous administration of 30.2 mCi Tc 99m Myoview. Stress was performed using the standard Tee protocol, with the patient reaching a peak heart rate of 88% maximal predicted heart rate. Rest images were obtained 11/10/2016 following the intravenous administration of 49.9 mCi Technetium 99m Myoview. Single photon emission tomographic (SPECT) images were obtained. SPECT images were acquired in a 64 x 64 matrix of 64 projections over 180 degrees. These were reconstructed into standard short axis, horizontal and vertical long axis cardiac projections. FINDINGS: The post stress images demonstrate the left ventricular chamber to be normal in size. There is a very small region of minimally decreased activity in the apical septal wall, which is probably an imaging artifact. Activity in the other murillo appears normal. The resting images demonstrate homogeneous distribution of activity in the left ventricular myocardium, with the equivocal abnormality in the apical septal wall not present on these images. The stress images were obtained using a gated SPECT technique, which permits visualization of wall motion and calculation of the left ventricular ejection fraction. No left ventricular wall motion abnormalities are noted on the stress study. In particular, in the small region of minimally decreased activity in the apical septal wall described above, no wall motion abnormalities are present. The calculated left ventricular ejection fraction is 58% on the stress study. No previous study is available for comparison. IMPRESSION: Probable normal exercise stress and resting myocardial perfusion study with normal left ventricular wall motion and ejection fraction. This Critical Result was discussed with Dr. Leon Junior at 4:16 PM on 11/10/2016 and it was ascertained that the content and urgency of the report was understood at the time of direct communication.
== END 2016-11-10 16:55 ==
LOC: ENRESERVTM → ENRESERVDT → ERH 04:01 → 1NO 07:02 → ERHI 07:02 → 1NO 08:15
PROVIDERS: Emergency Medicine; ADMIT Internal Medicine
DX: R07.9 Chest pain, unspecified (principal); I10 Essential (primary) hypertension; R94.31 Abnormal electrocardiogram [ECG] [EKG]
CPT/HCPCS: 2000; 78452; 93005; 93010; 93016; 93017; 96372; A9502; G0378; G0480; J0131; J1650; J3490